=== PATIENT | female | born 1995 | race American Indian/Alaskan Native ===

== ENCOUNTER 2018-05-24 08:10 | Outpatient (CLI) | payer OTHER ==
[2018-05-24] MEDS: KINEVAC IV NR (10:20)
--- NOTE | 2018-05-24 11:18 | Nuclear Medicine Report ---
HEPATOBILIARY SCAN: History: Right upper quadrant pain. Comparison: None. Following the injection of the radionuclide, serial scanning was obtained over the right upper quadrant. Initial imaging of the liver demonstrates a relatively normal activity pattern. Progressive concentration of the radionuclide in the bile ducts, with filling of both the gallbladder and small bowel, is identified within a normal time period. The gallbladder ejection fraction measures 47%. The patient reports that these same symptoms were reproduced during the infusion of CCK. IMPRESSION: Normal biliary system.
== END 2018-05-24 08:11 | disposition home or self-care (01) ==
LOC: NM 08:10
PROVIDERS: ATTEND Specialist
DX: R10.11 Right upper quadrant pain (principal)
CPT/HCPCS: 78227; A9537; J2805